=== PATIENT | female | born 1965 ===

== ENCOUNTER 2023-01-30 18:49 | Inpatient (IN) | payer OTHER, SELFPAY ==
--- NOTE | 2023-01-30 19:39 | PC.ADMIT ---
Nursing admission note: 57 year old female DX: Major Depressive Disorder with psychotic features. Referred for admission by CARE team. Per evaluation/family report patient had not been taking medications, has been increasingly depressed. Patient was brought to [facility] by her family for increased depression. Patient arrived to unit accompanied by EMT and security. Signed conditional voluntary for admission. Patient appeared to be thought blocked, hesitant with delay in responding. Patient does not make eye contact or engage verbally. Dressed in hospital attire. Did not respond to writers offer to orient her to unit or take vital signs. TOX screen negative, urine negative, COVID negative. NKDA, Lactose intolerant. Placed on 15 minute checks for safety. See crisis evaluation for details.
[2023-01-31] MEDS: Acetaminophen 325 MG TABLET 650 MG PO (01:14)
--- NOTE | 2023-01-31 01:38 | PC.ADMIT ---
Yoselin is a 57 year old female admitted from [facility] on a CV. She is flat guarded and suspicious. She would not engage with any staff for several hours after arriving to the floor. she declined to sign consent for her son aurea who is reportedly her Health Care Proxy. she has poor eye contact and became agitated and rude with admission questions. she reported multiple time that she doesn't belong her and that that there was supposed to be a crisis meeting with my family at the other hospital and then I was supposed to go home. I did not consent to be here. Are you telling me that I can't go home tonight? why can't I go home I didn't consent to be here in the first place She appears thought blocked and internally preoccupied but denies all psychiatric symptoms . she stated that she has trauma and has been treated for PTSD but would not reveal any details. patient oriented to unit. Plan of Care initiated
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
--- NOTE | 2023-01-31 06:58 | PC.NURSE ---
son-requested son, Shar, to be called and told he could visit. message left.
[2023-01-31 10:10] LABS: Estimated Average Glucose 108 mg/dL; Hemoglobin A1c % 5.4 %
--- NOTE | 2023-01-31 10:43 | PC.NURSE ---
Pt refused vitals and AM medication but accepted blood work. Pt stood in the same spot in the kitchen area for 3 hours and did not eat breakfast.
[2023-01-31 12:11] LABS: Alanine Aminotransferase 16 U/L (0-31); Albumin Level 5.1 g/dL (3.5-5.0); Alkaline Phosphatase 73 U/L (39-117); Anion Gap 17 (12-20); Aspartate Amino Transferase 22 U/L (5-31); Bilirubin Total 0.7 mg/dL (0.0-1.0); Blood Urea Nitrogen 20 mg/dL (9-16); Calcium 10.9 mg/dL (8.4-10.2); Carbon Dioxide 27 mmol/L (22-29); Chloride 101 mmol/L (96-108); Cholesterol 215 mg/dL; Estimated Glomerular Filt Rate > 60; Glucose Fasting 128 mg/dL (60-99); HDL Cholesterol 50 mg/dL; LDL Cholesterol Calculated 148 mg/dl; Potassium 4.2 mmol/L (3.3-5.1); Sodium 141 mmol/L (135-145); Total Protein 8.7 g/dL (6.5-8.0); Triglycerides 89 mg/dL
[2023-01-31 12:39] LABS: Vitamin B12 > 2000 pg/mL (200-900)
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
[2023-01-31 20:20] VITALS: BP 147/90; PULSE 106; RESP 16; TEMP 36.6; O2SAT 96
[2023-02-01] MEDS: Acetaminophen 325 MG TABLET 650 MG PO ×3 (00:01→15:05)
--- NOTE | 2023-02-01 04:21 | PC.NURSE ---
Addendum entered by Rosanne Finn RN 02/01/23 06:48: Has anyone called for me, I heard a helicopter , when asked what a helicopter has to do with someone calling for her her gaze and stance intensified as she stepped toward this database report writer and said my family owns a helicopter asked for Tylenol (had requested it crushed earlier because of the hour I can't swallow this ) asked if she needed it crushed and she did not answer then became argumentative when it wasn't crushed. refused Tylenol Addendum entered by Rosanne Finn RN 02/01/23 05:41: patient is noted to have been refusing meals but eating sealed snacks. This database report writer asked if the patient thought it might be easier for her to accept the meals if they canme from the kitchen sealed and she indicated that it would be easier to eat meals that came sealed. will pass the information on to team Original Note: Yoselin was noted to be standing in the heart staring blankly at the door for several hours. she requested that her bed sheets be changed and her bed be sanitized and stated but don't do it without me I want to see it. when staff was ready to help the patient she refused to go to her room and observe the cleaning of her bed. She also refused the clean linens that were supplied for her. she stated that she wanted it cleaned again and to have new fresh linens but then refused to observe a second cleaning or to accept the new fresh linens. she had also asked for her bathroom to be cleaned but again did not go to her room to observe the cleaning. After the person from environmental services left she became argumentative stating that she had not seen him clean her bathroom therefore she couldn't be sure that it was cleaned and wanted him to return and do it again so she could watch. when she was informed that this database report writer would not call them back to clean the bathroom again she became more intense and stepped toward this database report writer she was redirected without incident. the patient refused her HS Seroquel stating that she had taken her medication at the other hospital and that she shouldn't be here and needs to be transferred back to [facility]. Patient was offered her medications several times and each time she continued to perseverate about needing to see her bathroom being cleaned. patient refuses to have her bed made she will only sit for brief periods in a chair that has been sanitized. she has not slept thus far this shift but has stated several times that she doesn't need the offered item because she will be being discharged in t morning. she ate 1 bag of chips and 1 container of Apple sauce since 1930 on 01/31 and was not observed drinking anything despite being offered multiple things.
[2023-02-01] MEDS: Venlafaxine HCl ER 75 MG CAP.ER.24H PO (08:43)
[2023-02-01 08:56] VITALS: BP 132/82; PULSE 94; RESP 16; TEMP 36.2; O2SAT 98
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
[2023-02-02 08:15] VITALS: BP 156/89; PULSE 99; RESP 16; TEMP 36.1; O2SAT 99
[2023-02-02] MEDS: Venlafaxine HCl ER 75 MG CAP.ER.24H PO (10:22)
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
[2023-02-02 21:50] VITALS: BP 145/100; PULSE 70; RESP 16; TEMP 36.6; O2SAT 95
[2023-02-03] MEDS: Venlafaxine HCl ER 75 MG CAP.ER.24H PO (09:49)
--- NOTE | 2023-02-03 16:48 | PC.NURSE ---
Judy Alfonso APRN authorized early administration of Seroquel.
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
[2023-02-03 20:25] VITALS: BP 147/90; PULSE 80; RESP 18; TEMP 36.6
[2023-02-04 13:32] VITALS: BP 125/77; PULSE 104; RESP 18; TEMP 36.6; O2SAT 97
--- NOTE | 2023-02-04 14:38 | P.PNPSI_ITS ---
Subjective Subjective Date of Service: 02/04/23 Reason For Visit: F33.3 Subjective Notes: Section 12B Interim History: Pt in bed. Minimally talking to this telegraphic typewriter operator chief. She reports I'm not supposed to be here. Pt reports she hopes to be discharged home soon. Her breakfast and lunch are both untouched. Per nursing, pt has had minimal oral intake. Note that admission labs show elevated BUN, elevated protein all most likely due to dehydration. This telegraphic typewriter operator chief explained rechecking labs to check renal function as her intake continues to be very poor since admission, but pt declined. Pt has declined taking seroquel. She has taken effexor but pt highly paranoid, probably antidepressant may be worsening psychosis without her taking antipsychotic. Review of Systems Review of Systems Chronic back and knee pain Nasal congestion Otherwise patient has no acute medical complaints Yes all other systems are reviewed and are negative Mental Status Exam Mental Status Exam Narrative: pt disheveled; disorganized; talking to herself with speech increase in rate, amount. When appraoched by staff gives very brief answers; thoughts logical but based on delusional material. affect constricted, normo-intense, min-labile. mood not assessed. no SI/HI/AVH expressed. judgment and insight poor Diagnostics Vital Signs (24Hr): Vital Signs - 24 hr 02/03/23 20:25 02/04/23 13:32 Temperature 97.9 F 97.9 F Pulse Rate 80 104 H Respiratory Rate 18 18 Blood Pressure 147/90 H 125/77 Pulse Oximetry 97 Oxygen Delivery Method Room Air Room Air Labs 01/31/23 09:11 Medications Medications Current Medications Acetaminophen (Acetaminophen 325 Mg Tablet) 650 mg PO Q6H PRN PRN Reason: Headache/Pain Mild Scale (1-3) Last Admin: 02/01/23 15:05 Dose: 650 mg Al Hydroxide/Mg Hydroxide (Magnesium Hydrox/Alum Hydrox 30 Ml Oral.Susp) 30 ml PO Q6H PRN PRN Reason: Heartburn/Nausea Fluticasone Propionate (Fluticasone Propionate Nasal 16 Gm [place]) 1 spray NOSTRIL-B BID PRN PRN Reason: Nasal Congestion Hydroxyzine HCl (Hydroxyzine Hcl 25 Mg Tablet) 25 mg PO Q6H PRN PRN Reason: Anxiety Magnesium Hydroxide (Milk Of Magnesia 30 Ml Oral.Susp) 30 ml PO DAILY PRN PRN Reason: Constipation Nicotine Polacrilex (Nicotine Polacrilex 2 Mg Gum) 4 mg BUCCAL Q2H PRN PRN Reason: Nicotine Cravings Quetiapine Fumarate (Quetiapine Fumarate 25 Mg Tablet) 25 mg PO BEDTIME MASSIMO Last Admin: 02/04/23 04:21 Dose: Not Given Quetiapine Fumarate (Quetiapine Fumarate 100 Mg Tablet) 100 mg PO BEDTIME MASSIMO Last Admin: 02/04/23 04:21 Dose: Not Given Trazodone HCl (Trazodone Hcl 50 Mg Tablet) 50 mg PO BEDTIME MRX1 PRN PRN Reason: Insomnia Venlafaxine HCl (Venlafaxine Hcl Er 75 Mg Cap.Er.24h) 75 mg PO DAILY [facility] Last Admin: 02/04/23 12:31 Dose: Not Given Allergies Allergies Allergy/AdvReac Type Severity Reaction Status Date / Time Unable to Assess Allergy Unverified 01/30/23 19:13 Assessment & Plan Assessment & Plan (1) Schizophrenia, paranoid, chronic with acute exacerbation: Status: Acute Code(s): F20.0 - Paranoid schizophrenia Plan 01/31: continue/restart outpt regimen of effexor and seroquel. collect collateral as able. encourage adequate PO intake and ADLs. 02/01: refused seroquel last night, took effexor this morning. encouraged to take seroquel as well. informed we would be filing for commitment. tamez warning given. 02/02 encourage seroquel; continue treatment plan 02/03 continue treatment plan 02/04 continue current tx. minimal oral intake. labs already showing s/s of de hydrating, pt declines further labs to check impact on renal function. refuses medicaiton, mostly seroquel or other antipsychotic. Reason for continued inpatient stay Substantial Risk for: inability to function Time Spent With Patient Time: Total time managing care of this patient today ____ minutes.
[2023-02-04 16:53] LABS: Alanine Aminotransferase 22 U/L (0-31); Albumin Level 4.6 g/dL (3.5-5.0); Alkaline Phosphatase 63 U/L (39-117); Anion Gap 18 (12-20); Aspartate Amino Transferase 25 U/L (5-31); Bilirubin Total 0.7 mg/dL (0.0-1.0); Blood Urea Nitrogen 22 mg/dL (9-16); Calcium 10.3 mg/dL (8.4-10.2); Carbon Dioxide 25 mmol/L (22-29); Chloride 106 mmol/L (96-108); Estimated Glomerular Filt Rate > 60; Glucose Random 92 mg/dL (60-115); Potassium 4.7 mmol/L (3.3-5.1); Sodium 144 mmol/L (135-145); Total Protein 7.7 g/dL (6.5-8.0)
[2023-02-04 20:25] VITALS: RESP 18
[2023-02-04] MEDS: QUEtiapine Fumarate 100 MG TABLET PO (22:38)
[2023-02-04] MEDS: QUEtiapine Fumarate 25 MG TABLET PO (22:38)
--- NOTE | 2023-02-05 02:15 | PC.NURSE ---
Yoselin remains flat, guarded, paranoid and suspicious. she is slow to respond and refused vital signs, she took HS Seroquel with great encouragement from staff. she appears internally preoccupied but denies all psychiatric symptoms. when this documentation writer was attempting contact time with the patient she stated I don't understand the words you are saying, I don't want to talk to you about this, I'm not trying to be rude but I don't know what your talking about and I don't want to talk t you about this. continue to monitor for safety, continue Plan of Care
[2023-02-05 06:00] VITALS: BP 113/58; PULSE 92; RESP 18; TEMP 36.6; O2SAT 96
[2023-02-05] MEDS: Venlafaxine HCl ER 75 MG CAP.ER.24H PO (10:22)
[2023-02-05 21:35] VITALS: BP 118/77; PULSE 82; RESP 16; TEMP 36.2; O2SAT 97
--- NOTE | 2023-02-05 22:42 | P.PNPSI_ITS ---
Subjective Subjective Date of Service: 02/05/23 Reason For Visit: F33.3 Interim History: pt remains rigid in her thinking, saying she isn't supposed to be here, saying she was taking care of herself and others at home prior to hospitalization. seemed to have the expectation that she would be discharging today. legal situation reviewed, pt encouraged to take medications and discuss her situation with her family. it was noted pt took seroquel last night for the first time since admission. per staff, refused effexor. ignoring staff. extremely poor PO intake. refusing meds generally speaking. poor sleep. refusing labs to check on her nutrition/hydration status. isolative. appeared to have slept 7 hours last night. Mental Status Exam Mental Status Exam Narrative: dressed in [facility]. PMR. mod cooperative. speech nml in rate, amount, loudness. thoughts logical but based on delusional material. affect constricted, normo-intense, min-labile. mood not assessed. no SI/HI/AVH expressed. Diagnostics Vital Signs (24Hr): Vital Signs - 24 hr 02/05/23 06:00 02/05/23 21:35 Temperature 97.8 F 97.2 F Pulse Rate 92 82 Respiratory Rate 18 16 Blood Pressure 113/58 L 118/77 Pulse Oximetry 96 97 Oxygen Delivery Method Room Air Room Air Labs 02/04/23 15:31 Labs: Laboratory Results - last 48 hr 02/04/23 15:31 Sodium 144 Potassium 4.7 Chloride 106 Carbon Dioxide 25 Anion Gap 18 BUN 22 H Creatinine 0.85 Estim Creat Clear Calc TNP Estimated GFR > 60 Random Glucose 92 Calcium 10.3 H Total Bilirubin 0.7 AST 25 ALT 22 Alkaline Phosphatase 63 Total Protein 7.7 Albumin 4.6 Medications Medications Current Medications Acetaminophen (Acetaminophen 325 Mg Tablet) 650 mg PO Q6H PRN PRN Reason: Headache/Pain Mild Scale (1-3) Last Admin: 02/01/23 15:05 Dose: 650 mg Al Hydroxide/Mg Hydroxide (Magnesium Hydrox/Alum Hydrox 30 Ml Oral.Susp) 30 ml PO Q6H PRN PRN Reason: Heartburn/Nausea Fluticasone Propionate (Fluticasone Propionate Nasal 16 Gm [place]) 1 spray NOST RIL-B BID PRN PRN Reason: Nasal Congestion Hydroxyzine HCl (Hydroxyzine Hcl 25 Mg Tablet) 25 mg PO Q6H PRN PRN Reason: Anxiety Magnesium Hydroxide (Milk Of Magnesia 30 Ml Oral.Susp) 30 ml PO DAILY PRN PRN Reason: Constipation Nicotine Polacrilex (Nicotine Polacrilex 2 Mg Gum) 4 mg BUCCAL Q2H PRN PRN Reason: Nicotine Cravings Quetiapine Fumarate (Quetiapine Fumarate 25 Mg Tablet) 25 mg PO BEDTIME MASSIMO Last Admin: 02/05/23 22:34 Dose: Not Given Quetiapine Fumarate (Quetiapine Fumarate 100 Mg Tablet) 100 mg PO BEDTIME MASSIMO Last Admin: 02/05/23 22:34 Dose: Not Given Trazodone HCl (Trazodone Hcl 50 Mg Tablet) 50 mg PO BEDTIME MRX1 PRN PRN Reason: Insomnia Venlafaxine HCl (Venlafaxine Hcl Er 75 Mg Cap.Er.24h) 75 mg PO DAILY [facility] Last Admin: 02/05/23 10:22 Dose: 75 mg Allergies Allergies Allergy/AdvReac Type Severity Reaction Status Date / Time Unable to Assess Allergy Unverified 01/30/23 19:13 Assessment & Plan Assessment & Plan (1) Schizophrenia, paranoid, chronic with acute exacerbation: Status: Acute Code(s): F20.0 - Paranoid schizophrenia Plan 01/31: continue/restart outpt regimen of effexor and seroquel. collect collateral as able. encourage adequate PO intake and ADLs. 02/01: refused seroquel last night, took effexor this morning. encouraged to take seroquel as well. informed we would be filing for commitment. joi valdez given. 02/02 encourage seroquel; continue treatment plan 02/03 continue treatment plan 02/04 continue current tx. minimal oral intake. labs already showing s/s of dehydrating, pt declines further labs to check impact on renal function. refuses medication, mostly seroquel or other antipsychotic. 02/05: took seroquel last night for the first time since admission. presentation unchanged. delusional regarding her level of function and behaviors (such as adequacy of PO intake). Reason for continued inpatient stay Substantial Risk for: inability to function and rapid decompensation Time Spent With Patient Time: Total time managing care of this patient today _25___ minutes.
[2023-02-06] MEDS: Venlafaxine HCl ER 75 MG CAP.ER.24H PO (09:18)
[2023-02-06 10:00] VITALS: BP 122/80; PULSE 84; RESP 16; TEMP 36.4; O2SAT 98
--- NOTE | 2023-02-06 15:42 | P.PNPSI_ITS ---
Subjective Subjective Date of Service: 02/06/23 Reason For Visit: F33.3 Interim History: same presentation, unable to engage in conversation beyond i'm not supposed to be here. re-educated re legal circumstance, reinforced exhortation to take seroquel. behaving as if we had not had these conversations yesterday. per staff, did not eat breakfast or dinner. refused 1:1 contact. incontinent of bowel and urine, confused about what she needs to do to clean up. required RN assistance to shower. refused HS meds. Mental Status Exam Mental Status Exam Narrative: dressed in [facility]. PMR. mod cooperative. speech nml in rate, amount, loudness. thoughts logical but based on delusional material. affect constricted, normo-intense, min-labile. mood not assessed. no SI/HI/AVH expressed. Diagnostics Vital Signs (24Hr): Vital Signs - 24 hr 02/05/23 21:35 02/06/23 10:00 Temperature 97.2 F 97.6 F Pulse Rate 82 84 Respiratory Rate 16 16 Blood Pressure 118/77 122/80 Pulse Oximetry 97 98 Oxygen Delivery Method Room Air Room Air Labs 02/04/23 15:31 Labs: Laboratory Results - last 48 hr 02/04/23 15:31 Sodium 144 Potassium 4.7 Chloride 106 Carbon Dioxide 25 Anion Gap 18 BUN 22 H Creatinine 0.85 Estim Creat Clear Calc TNP Estimated GFR > 60 Random Glucose 92 Calcium 10.3 H Total Bilirubin 0.7 AST 25 ALT 22 Alkaline Phosphatase 63 Total Protein 7.7 Albumin 4.6 Medications Medications Current Medications Acetaminophen (Acetaminophen 325 Mg Tablet) 650 mg PO Q6H PRN PRN Reason: Headache/Pain Mild Scale (1-3) Last Admin: 02/01/23 15:05 Dose: 650 mg Al Hydroxide/Mg Hydroxide (Magnesium Hydrox/Alum Hydrox 30 Ml Oral.Susp) 30 ml PO Q6H PRN PRN Reason: Heartburn/Nausea Fluticasone Propionate (Fluticasone Propionate Nasal 16 Gm [place]) 1 spray NOSTRIL-B BID PRN PRN Reason: Nasal Congestion Hydroxyzine HCl (Hydroxyzine Hcl 25 Mg Tablet) 25 mg PO Q6H PRN PRN Reason: Anxiety Magnesium Hydroxide (Milk Of Magnesia 30 Ml Oral.Susp) 30 ml PO DAILY PRN PRN Reason: Constipation Nicotine Polacrilex (Nicotine Polacrilex 2 Mg Gum) 4 mg BUCCAL Q2H PRN PRN Reason: Nicotine Cravings Quetiapine Fumarate (Quetiapine Fumarate 25 Mg Tablet) 25 mg PO BEDTIME [facility] Last Admin: 02/05/23 22:34 Dose: Not Given Quetiapine Fumarate (Quetiapine Fumarate 100 Mg Tablet) 100 mg PO BEDTIME [facility]IMO Last Admin: 02/05/23 22:34 Dose: Not Given Trazodone HCl (Trazodone Hcl 50 Mg Tablet) 50 mg PO BEDTIME MRX1 PRN PRN Reason: Insomnia Venlafaxine HCl (Venlafaxine Hcl Er 75 Mg Cap.Er.24h) 75 mg PO DAILY [facility] Last Admin: 02/06/23 09:18 Dose: 75 mg Allergies Allergies Allergy/AdvReac Type Severity Reaction Status Date / Time Unable to Assess Allergy Unverified 01/30/23 19:13 Assessment & Plan Assessment & Plan (1) Schizophrenia, paranoid, chronic with acute exacerbation: Status: Acute Code(s): F20.0 - Paranoid schizophrenia Plan 01/31: continue/restart outpt regimen of effexor and seroquel. collect collateral as able. encourage adequate PO intake and ADLs. 02/01: refused seroquel last night, took effexor this morning. encouraged to take seroquel as well. informed we would be filing for commitment. tamez warning given. 02/02 encourage seroquel; continue treatment plan 02/03 continue treatment plan 02/04 continue current tx. minimal oral intake. labs already showing s/s of dehydrating, pt declines further labs to check impact on renal function. refuses medication, mostly seroquel or other antipsychotic. 02/05: took seroquel last night for the first time since admission. presentation unchanged. delusional regarding her level of function and behaviors (such as adequacy of PO intake). 02/06: no change in presentation. refused seroquel last night. Reason for continued inpatient stay Substantial Risk for: inability to function Time Spent With Patient Time: Total time managing care of this patient today _25___ minutes.
--- NOTE | 2023-02-06 17:15 | PC.NURSE ---
Verbal permission from patient to speak with son. Update given regarding her care.
[2023-02-06 19:55] VITALS: BP 122/81; PULSE 81; RESP 16; TEMP 36.6; O2SAT 95
[2023-02-06] MEDS: QUEtiapine Fumarate 100 MG TABLET PO (21:09)
[2023-02-06] MEDS: QUEtiapine Fumarate 25 MG TABLET PO (21:09)
--- NOTE | 2023-02-06 21:53 | PC.NURSE ---
Yoselin is admitted to [facility] on a section 7 for safety, medication management and stabilization, diagnosis MDD with psychotic features. This evening she has been observed to standing in the heart, on approach she was compliant to sit in the day room for VS/assessment, Denies SI/AVH, reported not feeling safe on the unit R/T another resident, verbalized concern about eating food provided, medications, drinking fluids, or sleeping in her assigned room, not sure it's safe. I don't know the person in my room. I was alone before. medication education given, took meds without problems, compliant with mouth check, fluids encouraged, given bottle(s) of water, offered another area to rest/sleep if needed. Yoselin verbalized that she is willing to eat if food is not opened, I'll eat the apple sauce cup. Reassurance/support provided, no incontinence episodes reported or observed. POC as outlined, 15 min unit safety observation.
[2023-02-07] MEDS: Venlafaxine HCl ER 75 MG CAP.ER.24H PO (08:35)
--- NOTE | 2023-02-07 13:48 | HO.PSYCHPN ---
Subjective Subjective Date of Service: 02/07/23 Reason For Visit: F33.3 Interim History: calm, cooperative. PMR, often seen standing in the middle of the heart for prolonged periods of time. continues to have poor insight into the reasons for her hospitalization, states she doesn't feel safe with the food. states she is concerned about [her] roommate, saying she does not feel safe with her. she observes she has had a couple of roommates already here and felt fine about them. per staff, paranoid, suspicious, guarded. fearful of sleeping with roommate. slept in sensory room. at 1/2 breakfast, drinking bottled water. Mental Status Exam Mental Status Exam Narrative: dressed in [facility]. PMR. mod cooperative. speech decr in rate, amount, loudness. thoughts logical but based on delusional material. affect constricted, normo-intense, non-labile. mood not assessed. no SI/HI/AVH expressed. Diagnostics Vital Signs (24Hr): Vital Signs - 24 hr 02/06/23 19:55 Temperature 97.8 F Pulse Rate 81 Respiratory Rate 16 Blood Pressure 122/81 Pulse Oximetry 95 Oxygen Delivery Method Room Air Labs 02/04/23 15:31 Medications Medications Current Medications Acetaminophen (Acetaminophen 325 Mg Tablet) 650 mg PO Q6H PRN PRN Reason: Headache/Pain Mild Scale (1-3) Last Admin: 02/01/23 15:05 Dose: 650 mg Al Hydroxide/Mg Hydroxide (Magnesium Hydrox/Alum Hydrox 30 Ml Oral.Susp) 30 ml PO Q6H PRN PRN Reason: Heartburn/Nausea Fluticasone Propionate (Fluticasone Propionate Nasal 16 Gm [place]) 1 spray NOSTRIL-B BID PRN PRN Reason: Nasal Congestion Hydroxyzine HCl (Hydroxyzine Hcl 25 Mg Tablet) 25 mg PO Q6H PRN PRN Reason: Anxiety Magnesium Hydroxide (Milk Of Magnesia 30 Ml Oral.Susp) 30 ml PO DAILY PRN PRN Reason: Constipation Nicotine Polacrilex (Nicotine Polacrilex 2 Mg Gum) 4 mg BUCCAL Q2H PRN PRN Reason: Nicotine Cravings Quetiapine Fumarate (Quetiapine Fumarate 25 Mg Tablet) 25 mg PO BEDTIME [facility] Last Admin: 02/06/23 21:09 Dose: 25 mg Quetiapine Fumarate (Quetiapine Fumarate 100 Mg Tablet) 100 mg PO BEDTIME [facility] Last Admin: 02/06/23 21:09 Dose: 100 mg Trazodone HCl (Trazodone Hcl 50 Mg Tablet) 50 mg PO BEDTIME [id number] PRN PRN Reason: Insomnia Venlafaxine HCl (Venlafaxine Hcl Er 75 Mg Cap.Er.24h) 75 mg PO DAILY [facility] Last Admin: 02/07/23 08:35 Dose: 75 mg Allergies Allergies Allergy/AdvReac Type Severity Reaction Status Date / Time Unable to Assess Allergy Unverified 01/30/23 19:13 Assessment & Plan Assessment & Plan (1) Schizophrenia, paranoid, chronic with acute exacerbation: Status: Acute Code(s): F20.0 - Paranoid schizophrenia Plan 01/31: continue/restart outpt regimen of effexor and seroquel. collect collateral as able. encourage adequate PO intake and ADLs. 02/01: refused seroquel last night, took effexor this morning. encouraged to take seroquel as well. informed we would be filing for commitment. tamez warning given. 02/02 encourage seroquel; continue treatment plan 02/03 continue treatment plan 02/04 continue current tx. minimal oral intake. labs already showing s/s of dehydrating, pt declines further labs to check impact on renal function. refuses medication, mostly seroquel or other antipsychotic. 02/05: took seroquel last night for the first time since admission. presentation unchanged. delusional regarding her level of function and behaviors (such as adequacy of PO intake). 02/06: no change in presentation. refused seroquel last night. 02/07: unchanged presentation. did take seroquel last NOC. Reason for continued inpatient stay Substantial Risk for: harm to self, inability to function and rapid decompensation Time Spent With Patient Time: Total time managing care of this patient today __25__ minutes.
[2023-02-07] MEDS: QUEtiapine Fumarate 100 MG TABLET PO (21:57)
[2023-02-07] MEDS: QUEtiapine Fumarate 25 MG TABLET PO (21:57)
[2023-02-08] MEDS: Venlafaxine HCl ER 75 MG CAP.ER.24H PO (08:15)
--- NOTE | 2023-02-08 10:43 | PC.NURSE ---
Pt ate 1oz of dry raisin bran cereal for her breakfast.
--- NOTE | 2023-02-08 13:11 | PC.NURSE ---
Pt ate a bowl of chicken noodle soup, a bag of chips, and a half bottle of [employer] spring water. Pt appeared paranoid and did not want to finish the remainder of water. RN provided her with another water bottle and encouraged fluids.
--- NOTE | 2023-02-08 15:03 | P.PNPSI_ITS ---
Subjective Subjective Date of Service: 02/08/23 Reason For Visit: F33.3 Interim History: no change in presentation. displaying disbelief that she remains in the hospital. she does say she is a little better today. she observes she has fear of being here and the food. she has a difficult time explaining what concerns her about either. she states she is being given food she did not order. she states she is concerned people are going in her room while she is not there, saying of the situation, i don't feel safe. reports having slept well last night. per staff, took meds last night. doesn't believe she's supposed to be here. needed prompts to find new room. 9/10 depression and anxiety. not feeling safe here. appeared to sleep. at 4-5 apple sauces and some tomato soup for dinner. PO intake continues to be minimal. Mental Status Exam Mental Status Exam Narrative: dressed in [facility]. PMR. mod cooperative. speech decr in rate, amount, loudness. thoughts logical but based on delusional material. affect constricted, normo-intense, non-labile. mood not assessed. no SI/HI/AVH expressed. Diagnostics Labs 02/04/23 15:31 Medications Medications Current Medications Acetaminophen (Acetaminophen 325 Mg Tablet) 650 mg PO Q6H PRN PRN Reason: Headache/Pain Mild Scale (1-3) Last Admin: 02/01/23 15:05 Dose: 650 mg Al Hydroxide/Mg Hydroxide (Magnesium Hydrox/Alum Hydrox 30 Ml Oral.Susp) 30 ml PO Q6H PRN PRN Reason: Heartburn/Nausea Fluticasone Propionate (Fluticasone Propionate Nasal 16 Gm [place]) 1 spray NOSTRIL-B BID PRN PRN Reason: Nasal Congestion Hydroxyzine HCl (Hydroxyzine Hcl 25 Mg Tablet) 25 mg PO Q6H PRN PRN Reason: Anxiety Magnesium Hydroxide (Milk Of Magnesia 30 Ml Oral.Susp) 30 ml PO DAILY PRN PRN Reason: Constipation Nicotine Polacrilex (Nicotine Polacrilex 2 Mg Gum) 4 mg BUCCAL Q2H PRN PRN Reason: Nicotine Cravings Quetiapine Fumarate (Quetiapine Fumarate 25 Mg Tablet) 25 mg PO BEDTIME [facility] Last Admin: 02/07/23 21:57 Dose: 25 mg Quetiapine Fumarate (Quetiapine Fumarate 100 Mg Tablet) 100 mg PO BEDTIME [facility] Last Admin: 02/07/23 21:57 Dose: 100 mg Trazodone HCl (Trazodone Hcl 50 Mg Tablet) 50 mg PO BEDTIME [id number] PRN PRN Reason: Insomnia Venlafaxine HCl (Venlafaxine Hcl Er 75 Mg Cap.Er.24h) 75 mg PO DAILY [facility] Last Admin: 02/08/23 08:15 Dose: 75 mg Allergies Allergies Allergy/AdvReac Type Severity Reaction Status Date / Time Unable to Assess Allergy Unverified 01/30/23 19:13 Assessment & Plan Assessment & Plan (1) Schizophrenia, paranoid, chronic with acute exacerbation: Status: Acute Code(s): F20.0 - Paranoid schizophrenia Plan 01/31: continue/restart outpt regimen of effexor and seroquel. collect collateral as able. encourage adequate PO intake and ADLs. 02/01: refused seroquel last night, took effexor this morning. encouraged to take seroquel as well. informed we would be filing for commitment. tamez warning given. 02/02 encourage seroquel; continue treatment plan 02/03 continue treatment plan 02/04 continue current tx. minimal oral intake. labs already showing s/s of dehydrating, pt declines further labs to check impact on renal function. refuses medication, mostly seroquel or other antipsychotic. 02/05: took seroquel last night for the first time since admission. presentation unchanged. delusional regarding her level of function and behaviors (such as adequacy of PO intake). 02/06: no change in presentation. refused seroquel last night. 02/07: unchanged presentation. did take seroquel last NOC. 02/08: unchanged presentation. took seroquel last night. says she is feeling a little better today. paranoid food is poisoned and that people are entering her room while she is not there. Reason for continued inpatient stay Substantial Risk for: inability to function and rapid decompensation Time Spent With Patient Time: Total time managing care of this patient today __25__ minutes.
--- NOTE | 2023-02-08 17:34 | PC.NURSE ---
Pt ate 1 apple sauce as a snack
--- NOTE | 2023-02-08 18:11 | PC.NURSE ---
Pt ate broccoli, tomato soup, and apple sauce for dinner
[2023-02-08 20:23] VITALS: BP 108/75; PULSE 77; RESP 18; TEMP 36.6; O2SAT 98
[2023-02-08] MEDS: QUEtiapine Fumarate 100 MG TABLET PO (20:26)
[2023-02-08] MEDS: QUEtiapine Fumarate 25 MG TABLET PO (20:26)
[2023-02-09 09:02] VITALS: BP 115/61; PULSE 101; RESP 16
[2023-02-09] MEDS: Venlafaxine HCl ER 75 MG CAP.ER.24H PO (09:03)
--- NOTE | 2023-02-09 11:59 | PC.NURSE ---
For breakfast pt ate about 10% of her meal - 1/2 of an omelette, about 2 bites of [place] toast, and drank about 1/2 of her tea. Pt's son visited, and reported that she likes white grape juice, and will bring a bottle in for her tomorrow.
--- NOTE | 2023-02-09 13:47 | HO.PSYCHPN ---
Subjective Subjective Date of Service: 02/09/23 Reason For Visit: F33.3 Interim History: no change in presentation. Patient is paranoid and anxious. She is eating small amounts of food due to paranoia about the amount of food that I didn't order. Also feels people are entering her room. Brother told nursing she likes grape juice and he will bring some. Reports having slept well last night. per staff, took meds last night. Says she slept better. PO intake continues to be minimal.Appears preoccupied. Review of Systems Review of Systems Chronic back and knee pain Nasal congestion Otherwise patient has no acute medical complaints Yes all other systems are reviewed and are negative Mental Status Exam Mental Status Exam Narrative: dressed in [facility]. PMR. mod cooperative. speech decr in rate, amount, loudness. thoughts logical but based on delusional material. affect constricted, normo-intense, non-labile. mood not assessed. no SI/HI/AVH expressed. Appears preoccupied and thought process slowed. Soft speech. Diagnostics Vital Signs (24Hr): Vital Signs - 24 hr 02/08/23 20:23 02/09/23 09:02 Temperature 97.8 F Pulse Rate 77 101 H Respiratory Rate 18 16 Blood Pressure 108/75 115/61 Pulse Oximetry 98 Oxygen Delivery Method Room Air Labs 02/04/23 15:31 Medications Medications Current Medications Acetaminophen (Acetaminophen 325 Mg Tablet) 650 mg PO Q6H PRN PRN Reason: Headache/Pain Mild Scale (1-3) Last Admin: 02/01/23 15:05 Dose: 650 mg Al Hydroxide/Mg Hydroxide (Magnesium Hydrox/Alum Hydrox 30 Ml Oral.Susp) 30 ml PO Q6H PRN PRN Reason: Heartburn/Nausea Fluticasone Propionate (Fluticasone Propionate Nasal 16 Gm [place]) 1 spray NOSTRIL-B BID PRN PRN Reason: Nasal Congestion Hydroxyzine HCl (Hydroxyzine Hcl 25 Mg Tablet) 25 mg PO Q6H PRN PRN Reason: Anxiety Magnesium Hydroxide (Milk Of Magnesia 30 Ml Oral.Susp) 30 ml PO DAILY PRN PRN Reason: Constipation Nicotine Polacrilex (Nicotine Polacrilex 2 Mg Gum) 4 mg BUCCAL Q2H PRN PRN Reason: Nicotine Cravings Quetiapine Fumarate (Quetiapine Fumarate 25 Mg Tablet) 25 mg PO BEDTIME [facility] Last Admin: 02/08/23 20:26 Dose: 25 mg Quetiapine Fumarate (Quetiapine Fumarate 100 Mg Tablet) 100 mg PO BEDTIME [facility] Last Admin: 02/08/23 20:26 Dose: 100 mg Trazodone HCl (Trazodone Hcl 50 Mg Tablet) 50 mg PO BEDTIME MRX1 PRN PRN Reason: Insomnia Venlafaxine HCl (Venlafaxine Hcl Er 75 Mg Cap.Er.24h) 75 mg PO DAILY [facility] Last Admin: 02/09/23 09:03 Dose: 75 mg Allergies Allergies Allergy/AdvReac Type Severity Reaction Status Date / Time Unable to Assess Allergy Unverified 01/30/23 19:13 Assessment & Plan Assessment & Plan (1) Schizophrenia, paranoid, chronic with acute exacerbation: Status: Acute Code(s): F20.0 - Paranoid schizophrenia Plan 01/31: continue/restart outpt regimen of effexor and seroquel. collect collateral as able. encourage adequate PO intake and ADLs. 02/01: refused seroquel last night, took effexor this morning. encouraged to take seroquel as well. informed we would be filing for commitment. tamez warning given. 02/02 encourage seroquel; continue treatment plan 02/03 continue treatment plan 02/04 continue current tx. minimal oral intake. labs already showing s/s of dehydrating, pt declines further labs to check impact on renal function. refuses medication, mostly seroquel or other antipsychotic. 02/05: took seroquel last night for the first time since admission. presentation unchanged. delusional regarding her level of function and behaviors (such as adequacy of PO intake). 02/06: no change in presentation. refused seroquel last night. 02/07: unchanged presentation. did take seroquel last NOC. 02/08: unchanged presentation. took seroquel last night. says she is feeling a little better today. paranoid food is poisoned and that people are entering her room while she is not there. 02/09: Increase Seroquel to 50 mg HS targeting paranoia. Continue titration. Reason for continued inpatient stay Substantial Risk for: inability to function and rapid decompensation Time Spent With Patient Time: Total time managing care of this patient today ____ minutes.
[2023-02-09 21:12] VITALS: BP 134/81; PULSE 77; RESP 18; TEMP 36.3; O2SAT 97
--- NOTE | 2023-02-09 23:02 | PC.NURSE ---
Pt was confused by the increase in dose of seroquel from 125mg to 150mg. Refused the increase and refused the entire dose this evening stating she wants to talk to her doctor as she was not aware of an increase. Pt appeared to be distrustful of RN, even though she had been taking meds from this RN for past two days.
[2023-02-10 08:00] VITALS: BP 115/74; PULSE 79; RESP 16; TEMP 36.5; O2SAT 98
[2023-02-10] MEDS: Venlafaxine HCl ER 75 MG CAP.ER.24H PO (08:24)
--- NOTE | 2023-02-10 15:23 | P.PNPSI_ITS ---
Subjective Subjective Date of Service: 02/10/23 Reason For Visit: F33.3 Interim History: no change in presentation. Patient is paranoid and anxious. She didn't want an increase in Seroquel 150 mg. She is eating small amounts of food due to paranoia. Also feels people are entering her room. Reports having slept well last night. PO intake continues to be minimal.Appears preoccupied. Review of Systems Review of Systems Chronic back and knee pain Nasal congestion Otherwise patient has no acute medical complaints Yes all other systems are reviewed and are negative Mental Status Exam Mental Status Exam Narrative: dressed in [facility]. PMR. mod cooperative. speech decr in rate, amount, loudness. thoughts logical but based on delusional material. affect constricted, normo-intense, non-labile. mood not assessed. no SI/HI/AVH expressed. Appears preoccupied and thought process slowed. Soft speech. Diagnostics Vital Signs (24Hr): Vital Signs - 24 hr 02/09/23 21:12 02/10/23 08:00 Temperature 97.3 F 97.7 F Pulse Rate 77 79 Respiratory Rate 18 16 Blood Pressure 134/81 115/74 Pulse Oximetry 97 98 Oxygen Delivery Method Room Air Room Air Labs 02/04/23 15:31 Medications Medications Current Medications Acetaminophen (Acetaminophen 325 Mg Tablet) 650 mg PO Q6H PRN PRN Reason: Headache/Pain Mild Scale (1-3) Last Admin: 02/01/23 15:05 Dose: 650 mg Al Hydroxide/Mg Hydroxide (Magnesium Hydrox/Alum Hydrox 30 Ml Oral.Susp) 30 ml PO Q6H PRN PRN Reason: Heartburn/Nausea Fluticasone Propionate (Fluticasone Propionate Nasal 16 Gm [place]) 1 spray NOSTRIL-B BID PRN PRN Reason: Nasal Congestion Hydroxyzine HCl (Hydroxyzine Hcl 25 Mg Tablet) 25 mg PO Q6H PRN PRN Reason: Anxiety Magnesium Hydroxide (Milk Of Magnesia 30 Ml Oral.Susp) 30 ml PO DAILY PRN PRN Reason: Constipation Nicotine Polacrilex (Nicotine Polacrilex 2 Mg Gum) 4 mg BUCCAL Q2H PRN PRN Reason: Nicotine Cravings Quetiapine Fumarate (Quetiapine Fumarate 25 Mg Tablet) 125 mg PO BEDTIME [facility] Trazodone HCl (Trazodone Hcl 50 Mg Tablet) 50 mg PO BEDTIME MRX1 PRN PRN Reason: Insomnia Venlafaxine HCl (Venlafaxine Hcl Er 75 Mg Cap.Er.24h) 75 mg PO DAILY [facility] Last Admin: 02/10/23 08:24 Dose: 75 mg Allergies Allergies Allergy/AdvReac Type Severity Reaction Status Date / Time Unable to Assess Allergy Unverified 01/30/23 19:13 Assessment & Plan Assessment & Plan (1) Schizophrenia, paranoid, chronic with acute exacerbation: Status: Acute Code(s): F20.0 - Paranoid schizophrenia Plan 01/31: continue/restart outpt regimen of effexor and seroquel. collect collateral as able. encourage adequate PO intake and ADLs. 02/01: refused seroquel last night, took effexor this morning. encouraged to take seroquel as well. informed we would be filing for commitment. tamez warning given. 02/02 encourage seroquel; continue treatment plan 02/03 continue treatment plan 02/04 continue current tx. minimal oral intake. labs already showing s/s of dehydrating, pt declines further labs to check impact on renal function. refuses medication, mostly seroquel or other antipsychotic. 02/05: took seroquel last night for the first time since admission. presentation unchanged. delusional regarding her level of function and behaviors (such as adequacy of PO intake). 02/06: no change in presentation. refused seroquel last night. 02/07: unchanged presentation. did take seroquel last NOC. 02/08: unchanged presentation. took seroquel last night. says she is feeling a little better today. paranoid food is poisoned and that people are entering her room while she is not there. 02/09: Increase Seroquel to 150 mg HS targeting paranoia. Continue titration. 02/10: Lower Seroquel back to 125 mg HS. Reason for continued inpatient stay Substantial Risk for: inability to function and rapid decompensation Time Spent With Patient Time: Total time managing care of this patient today ____ minutes.
[2023-02-10] MEDS: QUEtiapine Fumarate 25 MG TABLET 125 MG PO (22:01)
[2023-02-10 22:03] VITALS: BP 116/82; PULSE 83; TEMP 36.5; O2SAT 95
[2023-02-11] MEDS: Venlafaxine HCl ER 75 MG CAP.ER.24H PO (08:31)
[2023-02-11 09:18] VITALS: BP 106/67; PULSE 116; RESP 16; TEMP 36.4; O2SAT 98
--- NOTE | 2023-02-11 15:40 | HO.PSYCHPN ---
Subjective Subjective Date of Service: 02/11/23 Reason For Visit: F33.3 Interim History: seen with SW and 3 of her family members. presentation unchanged from last week. family members supportive of pt, pt able to sign in under CV. long discussion held around best treatment setting and best process to get pt the help she needs. per staff, took effexor this morning. ate 1 apple sauce and drank 1 bottle of water yesterday. denies SI/HI. took seroquel last NOC but not the night before (dosing had been increased to 150 at HS the night before). Mental Status Exam Mental Status Exam Narrative: dressed in [facility]. PMR. mod cooperative. speech decr in rate, amount, loudness. thoughts logical but based on delusional material. affect constricted, normo-intense, non-labile. mood not assessed. no SI/HI/AVH expressed. Diagnostics Vital Signs (24Hr): Vital Signs - 24 hr 02/10/23 22:03 02/11/23 09:18 Temperature 97.7 F 97.6 F Pulse Rate 83 116 H Respiratory Rate 16 Blood Pressure 116/82 106/67 Pulse Oximetry 95 98 Oxygen Delivery Method Room Air Room Air Labs 02/04/23 15:31 Medications Medications Current Medications Acetaminophen (Acetaminophen 325 Mg Tablet) 650 mg PO Q6H PRN PRN Reason: Headache/Pain Mild Scale (1-3) Last Admin: 02/01/23 15:05 Dose: 650 mg Al Hydroxide/Mg Hydroxide (Magnesium Hydrox/Alum Hydrox 30 Ml Oral.Susp) 30 ml PO Q6H PRN PRN Reason: Heartburn/Nausea Fluticasone Propionate (Fluticasone Propionate Nasal 16 Gm [place]) 1 spray NOSTRIL-B BID PRN PRN Reason: Nasal Congestion Hydroxyzine HCl (Hydroxyzine Hcl 25 Mg Tablet) 25 mg PO Q6H PRN PRN Reason: Anxiety Magnesium Hydroxide (Milk Of Magnesia 30 Ml Oral.Susp) 30 ml PO DAILY PRN PRN Reason: Constipation Nicotine Polacrilex (Nicotine Polacrilex 2 Mg Gum) 4 mg BUCCAL Q2H PRN PRN Reason: Nicotine Cravings Quetiapine Fumarate (Quetiapine Fumarate 25 Mg Tablet) 125 mg PO BEDTIME [facility] Last Admin: 02/10/23 22:01 Dose: 125 mg Trazodone HCl (Trazodone Hcl 50 Mg Tablet) 50 mg PO BEDTIME MRX1 PRN PRN Reason: Insomnia Venlafaxine HCl (Venlafaxine Hcl Er 75 Mg Cap.Er.24h) 75 mg PO DAILY [facility] Last Admin: 02/11/23 08:31 Dose: 75 mg Allergies Allergies Allergy/AdvReac Type Severity Reaction Status Date / Time Unable to Assess Allergy Unverified 01/30/23 19:13 Assessment & Plan Assessment & Plan (1) Schizophrenia, paranoid, chronic with acute exacerbation: Status: Acute Code(s): F20.0 - Paranoid schizophrenia Plan 01/31: continue/restart outpt regimen of effexor and seroquel. collect collateral as able. encourage adequate PO intake and ADLs. 02/01: refused seroquel last night, took effexor this morning. encouraged to take seroquel as well. informed we would be filing for commitment. tamez warning given. 02/02 encourage seroquel; continue treatment plan 02/03 continue treatment plan 02/04 continue current tx. minimal oral intake. labs already showing s/s of dehydrating, pt declines further labs to check impact on renal function. refuses medication, mostly seroquel or other antipsychotic. 02/05: took seroquel last night for the first time since admission. presentation unchanged. delusional regarding her level of function and behaviors (such as adequacy of PO intake). 02/06: no change in presentation. refused seroquel last night. 02/07: unchanged presentation. did take seroquel last NOC. 02/08: unchanged presentation. took seroquel last night. says she is feeling a little better today. paranoid food is poisoned and that people are entering her room while she is not there. 02/09: Increase Seroquel to 150 mg HS targeting paranoia. Continue titration. 02/10: Lower Seroquel back to 125 mg HS. 02/11: unchanged in presentation. family mtg. pt signed in voluntarily. Reason for continued inpatient stay Substantial Risk for: inability to function and rapid decompensation Time Spent With Patient Time: Total time managing care of this patient today __45__ minutes.
[2023-02-11 20:05] VITALS: BP 112/71; PULSE 73; RESP 16; TEMP 36.6; O2SAT 98
[2023-02-11] MEDS: QUEtiapine Fumarate 25 MG TABLET 125 MG PO (21:10)
[2023-02-11] MEDS: Acetaminophen 325 MG TABLET 650 MG PO (21:11)
[2023-02-12] MEDS: Venlafaxine HCl ER 75 MG CAP.ER.24H PO (08:31)
[2023-02-12 09:04] VITALS: BP 104/65; PULSE 86; RESP 18; TEMP 37.1; O2SAT 96
--- NOTE | 2023-02-12 13:06 | HO.PSYCHPN ---
Subjective Subjective Date of Service: 02/12/23 Reason For Visit: F33.3 Interim History: calm, cooperative. no substantial change in presentation. remains more forthcoming and engageable than prior. discuss 3-day notice as an option for her. suggests increasing dose of effexor for depression, which she declines. states she slept well and is still depressed. per staff, anxious and depressed. ate 50% breakfast, no lunch. pleasant, safe. visible, isolative. slept in her own bed last night. med-compliant. Mental Status Exam Mental Status Exam Narrative: dressed in [facility]. PMR. cooperative. speech decr in rate, amount, loudness. thoughts logical but based on delusional material. affect constricted, normo-intense, non-labile. mood still depressed. no SI/HI/AVH expressed. Diagnostics Vital Signs (24Hr): Vital Signs - 24 hr 02/11/23 20:05 02/12/23 09:04 Temperature 97.8 F 98.8 F Pulse Rate 73 86 Respiratory Rate 16 18 Blood Pressure 112/71 104/65 Pulse Oximetry 98 96 Oxygen Delivery Method Room Air Room Air Labs 02/04/23 15:31 Medications Medications Current Medications Acetaminophen (Acetaminophen 325 Mg Tablet) 650 mg PO Q6H PRN PRN Reason: Headache/Pain Mild Scale (1-3) Last Admin: 02/11/23 21:11 Dose: 650 mg Al Hydroxide/Mg Hydroxide (Magnesium Hydrox/Alum Hydrox 30 Ml Oral.Susp) 30 ml PO Q6H PRN PRN Reason: Heartburn/Nausea Fluticasone Propionate (Fluticasone Propionate Nasal 16 Gm [place]) 1 spray NOSTRIL-B BID PRN PRN Reason: Nasal Congestion Hydroxyzine HCl (Hydroxyzine Hcl 25 Mg Tablet) 25 mg PO Q6H PRN PRN Reason: Anxiety Magnesium Hydroxide (Milk Of Magnesia 30 Ml Oral.Susp) 30 ml PO DAILY PRN PRN Reason: Constipation Nicotine Polacrilex (Nicotine Polacrilex 2 Mg Gum) 4 mg BUCCAL Q2H PRN PRN Reason: Nicotine Cravings Quetiapine Fumarate (Quetiapine Fumarate 25 Mg Tablet) 125 mg PO BEDTIME MASSIMO Last Admin: 02/11/23 21:10 Dose: 125 mg Trazodone HCl (Trazodone Hcl 50 Mg Tablet) 50 mg PO BEDTIME MRX1 PRN PRN Reason: Insomnia Venlafaxine HCl (Venlafaxine Hcl Er 75 Mg Cap.Er.24h) 75 mg PO DAILY MASSIMO Last Admin: 02/12/23 08:31 Dose: 75 mg Allergies Allergies Allergy/AdvReac Type Severity Reaction Status Date / Time Unable to Assess Allergy Unverified 01/30/23 19:13 Assessment & Plan Assessment & Plan (1) Schizophrenia, paranoid, chronic with acute exacerbation: Status: Acute Code(s): F20.0 - Paranoid schizophrenia Plan 01/31: continue/restart outpt regimen of effexor and seroquel. collect collateral as able. encourage adequate PO intake and ADLs. 02/01: refused seroquel last night, took effexor this morning. encouraged to take seroquel as well. informed we would be filing for commitment. tamez warning given. 02/02 encourage seroquel; continue treatment plan 02/03 continue treatment plan 02/04 continue current tx. minimal oral intake. labs already showing s/s of dehydrating, pt declines further labs to check impact on renal function. refuses medication, mostly seroquel or other antipsychotic. 02/05: took seroquel last night for the first time since admission. presentation unchanged. delusional regarding her level of function and behaviors (such as adequacy of PO intake). 02/06: no change in presentation. refused seroquel last night. 02/07: unchanged presentation. did take seroquel last NOC. 02/08: unchanged presentation. took seroquel last night. says she is feeling a little better today. paranoid food is poisoned and that people are entering her room while she is not there. 02/09: Increase Seroquel to 150 mg HS targeting paranoia. Continue titration. 02/10: Lower Seroquel back to 125 mg HS. 02/11: unchanged in presentation. family mtg. pt signed in voluntarily. 02/12: declines increase in anti-depressant dosing. med-compliant, slept well last night. perhaps a bit more engageable than early in her stay, slightly less paranoid. continue current mgmt as pt declines recommended changes. Reason for continued inpatient stay Substantial Risk for: inability to function and rapid decompensation Time Spent With Patient Time: Total time managing care of this patient today _25___ minutes.
[2023-02-12 19:50] VITALS: BP 111/71; PULSE 74; RESP 16; TEMP 36.6; O2SAT 98
[2023-02-12] MEDS: Acetaminophen 325 MG TABLET 650 MG PO (20:41)
[2023-02-12] MEDS: QUEtiapine Fumarate 25 MG TABLET 125 MG PO (20:41)
[2023-02-13 08:30] VITALS: BP 104/57; PULSE 96; RESP 18; TEMP 36.3; O2SAT 98
[2023-02-13] MEDS: Venlafaxine HCl ER 75 MG CAP.ER.24H PO (08:46)
--- NOTE | 2023-02-13 12:21 | HO.PSYCHPN ---
Subjective Subjective Date of Service: 02/13/23 Reason For Visit: F33.3 Interim History: feeling a little tired. c/o back pain. eatign better. still depressed. still paranoid ppl are entering her room when she is not there or poking their heads in. per staff, watching TV, isolative. ate 50% of breakfast and lunch. feels meds are helpful. taking meds. denies psych Sx. feeling better, sleeping better. Mental Status Exam Mental Status Exam Narrative: dressed in [facility]. PMR. cooperative. speech decr in rate, nml amount, nml loudness. thoughts logical but based on delusions; paranoia remains. affect constricted, normo-intense, non-labile. mood still depressed. no SI/HI/AVH expressed. Diagnostics Vital Signs (24Hr): Vital Signs - 24 hr 02/12/23 19:50 02/13/23 08:30 Temperature 97.8 F 97.3 F Pulse Rate 74 96 Respiratory Rate 16 18 Blood Pressure 111/71 104/57 L Pulse Oximetry 98 98 Oxygen Delivery Method Room Air Room Air Labs 02/04/23 15:31 Medications Medications Current Medications Acetaminophen (Acetaminophen 325 Mg Tablet) 650 mg PO Q6H PRN PRN Reason: Headache/Pain Mild Scale (1-3) Last Admin: 02/12/23 20:41 Dose: 650 mg Al Hydroxide/Mg Hydroxide (Magnesium Hydrox/Alum Hydrox 30 Ml Oral.Susp) 30 ml PO Q6H PRN PRN Reason: Heartburn/Nausea Fluticasone Propionate (Fluticasone Propionate Nasal 16 Gm [place]) 1 spray NOSTRIL-B BID PRN PRN Reason: Nasal Congestion Hydroxyzine HCl (Hydroxyzine Hcl 25 Mg Tablet) 25 mg PO Q6H PRN PRN Reason: Anxiety Magnesium Hydroxide (Milk Of Magnesia 30 Ml Oral.Susp) 30 ml PO DAILY PRN PRN Reason: Constipation Nicotine Polacrilex (Nicotine Polacrilex 2 Mg Gum) 4 mg BUCCAL Q2H PRN PRN Reason: Nicotine Cravings Quetiapine Fumarate (Quetiapine Fumarate 25 Mg Tablet) 125 mg PO BEDTIME MASSIMO Last Admin: 02/12/23 20:41 Dose: 125 mg Trazodone HCl (Trazodone Hcl 50 Mg Tablet) 50 mg PO BEDTIME MRX1 PRN PRN Reason: Insomnia Venlafaxine HCl (Venlafaxine Hcl Er 75 Mg Cap.Er.24h) 75 mg PO DAILY MASSIMO Last Admin: 02/13/23 08:46 Dose: 75 mg Allergies Allergies Allergy/AdvReac Type Severity Reaction Status Date / Time Unable to Assess Allergy Unverified 01/30/23 19:13 Assessment & Plan Assessment & Plan (1) Schizophrenia, paranoid, chronic with acute exacerbation: Status: Acute Code(s): F20.0 - Paranoid schizophrenia Plan 01/31: continue/restart outpt regimen of effexor and seroquel. collect collateral as able. encourage adequate PO intake and ADLs. 02/01: refused seroquel last night, took effexor this morning. encouraged to take seroquel as well. informed we would be filing for commitment. tamez warning given. 02/02 encourage seroquel; continue treatment plan 02/03 continue treatment plan 02/04 continue current tx. minimal oral intake. labs already showing s/s of dehydrating, pt declines further labs to check impact on renal function. refuses medication, mostly seroquel or other antipsychotic. 02/05: took seroquel last night for the first time since admission. presentation unchanged. delusional regarding her level of function and behaviors (such as adequacy of PO intake). 02/06: no change in presentation. refused seroquel last night. 02/07: unchanged presentation. did take seroquel last NOC. 02/08: unchanged presentation. took seroquel last night. says she is feeling a little better today. paranoid food is poisoned and that people are entering her room while she is not there. 02/09: Increase Seroquel to 150 mg HS targeting paranoia. Continue titration. 02/10: Lower Seroquel back to 125 mg HS. 02/11: unchanged in presentation. family mtg. pt signed in voluntarily. 02/12: declines increase in anti-depressant dosing. med-compliant, slept well last night. perhaps a bit more engageable than early in her stay, slightly less paranoid. continue current mgmt as pt declines recommended changes. 02/13: reporting improvement in mood and sleep. taking meds. continue current mgmt. Reason for continued inpatient stay Substantial Risk for: inability to function and rapid decompensation Time Spent With Patient Time: Total time managing care of this patient today __25__ minutes.
[2023-02-13 21:48] VITALS: BP 112/73; PULSE 70; RESP 16; TEMP 36.3; O2SAT 99
[2023-02-14 08:30] VITALS: BP 128/60; PULSE 77; RESP 18; TEMP 36.6; O2SAT 98
[2023-02-14] MEDS: Venlafaxine HCl ER 75 MG CAP.ER.24H PO (09:07)
--- NOTE | 2023-02-14 13:12 | HO.PSYCHPN ---
Subjective Subjective Date of Service: 02/14/23 Reason For Visit: F33.3 Interim History: calm, cooperative. more fluid and spontaneous than prior. c/o some slowness in the mornings. declines to increase effexor once again. per staff, anxious and depressed. saw someone go in her room when she wasn't there. thinks someone is watching her when she's sleeping (not person doing checks). med-compliant. appears to sleep well. Mental Status Exam Mental Status Exam Narrative: dressed in [facility]. less PMR. cooperative. speech nml in rate, nml amount, decr loudness. thoughts logical; paranoia remains. affect constricted, normo-intense, non-labile. mood I'm OK. no SI/HI/AVH expressed. Diagnostics Vital Signs (24Hr): Vital Signs - 24 hr 02/13/23 21:48 02/14/23 08:30 Temperature 97.3 F 97.9 F Pulse Rate 70 77 Respiratory Rate 16 18 Blood Pressure 112/73 128/60 Pulse Oximetry 99 98 Oxygen Delivery Method Room Air Room Air Labs 02/04/23 15:31 Medications Medications Current Medications Acetaminophen (Acetaminophen 325 Mg Tablet) 650 mg PO Q6H PRN PRN Reason: Headache/Pain Mild Scale (1-3) Last Admin: 02/12/23 20:41 Dose: 650 mg Al Hydroxide/Mg Hydroxide (Magnesium Hydrox/Alum Hydrox 30 Ml Oral.Susp) 30 ml PO Q6H PRN PRN Reason: Heartburn/Nausea Fluticasone Propionate (Fluticasone Propionate Nasal 16 Gm [place]) 1 spray NOSTRIL-B BID PRN PRN Reason: Nasal Congestion Hydroxyzine HCl (Hydroxyzine Hcl 25 Mg Tablet) 25 mg PO Q6H PRN PRN Reason: Anxiety Magnesium Hydroxide (Milk Of Magnesia 30 Ml Oral.Susp) 30 ml PO DAILY PRN PRN Reason: Constipation Nicotine Polacrilex (Nicotine Polacrilex 2 Mg Gum) 4 mg BUCCAL Q2H PRN PRN Reason: Nicotine Cravings Quetiapine Fumarate 100 mg/ (Quetiapine Fumarate 25 mg) 125 mg PO BEDTIME MASSIMO Last Admin: 02/13/23 21:56 Dose: 125 mg Trazodone HCl (Trazodone Hcl 50 Mg Tablet) 50 mg PO BEDTIME MRX1 PRN PRN Reason: Insomnia Venlafaxine HCl (Venlafaxine Hcl Er 75 Mg Cap.Er.24h) 75 mg PO DAILY MASSIMO Last Admin: 02/14/23 09:07 Dose: 75 mg Allergies Allergies Allergy/AdvReac Type Severity Reaction Status Date / Time No Known Allergies Allergy Verified 02/13/23 22:35 Assessment & Plan Assessment & Plan (1) Schizophrenia, paranoid, chronic with acute exacerbation: Status: Acute Code(s): F20.0 - Paranoid schizophrenia Plan 01/31: continue/restart outpt regimen of effexor and seroquel. collect collateral as able. encourage adequate PO intake and ADLs. 02/01: refused seroquel last night, took effexor this morning. encouraged to take seroquel as well. informed we would be filing for commitment. tamez warning given. 02/02 encourage seroquel; continue treatment plan 02/03 continue treatment plan 02/04 continue current tx. minimal oral intake. labs already showing s/s of dehydrating, pt declines further labs to check impact on renal function. refuses medication, mostly seroquel or other antipsychotic. 02/05: took seroquel last night for the first time since admission. presentation unchanged. delusional regarding her level of function and behaviors (such as adequacy of PO intake). 02/06: no change in presentation. refused seroquel last night. 02/07: unchanged presentation. did take seroquel last NOC. 02/08: unchanged presentation. took seroquel last night. says she is feeling a little better today. paranoid food is poisoned and that people are entering her room while she is not there. 02/09: Increase Seroquel to 150 mg HS targeting paranoia. Continue titration. 02/10: Lower Seroquel back to 125 mg HS. 02/11: unchanged in presentation. family mtg. pt signed in voluntarily. 02/12: declines increase in anti-depressant dosing. med-compliant, slept well last night. perhaps a bit more engageable than early in her stay, slightly less paranoid. continue current mgmt as pt declines recommended changes. 02/13: reporting improvement in mood and sleep. taking meds. continue current mgmt. 02/14: sleeping well, mood i'm OK. paranoia of someone watching her in her sleep and of ppl entering her room when she is not there remains. declines effexor increase again. continue current mgmt. Reason for continued inpatient stay Substantial Risk for: inability to function and rapid decompensation Time Spent With Patient Time: Total time managing care of this patient today __25__ minutes.
[2023-02-14 21:39] VITALS: BP 127/74; PULSE 72; RESP 16; TEMP 36.3; O2SAT 98
[2023-02-15] MEDS: Venlafaxine HCl ER 75 MG CAP.ER.24H PO (08:39)
[2023-02-15 08:53] VITALS: BP 119/71; PULSE 79; RESP 18; TEMP 36.2; O2SAT 98
--- NOTE | 2023-02-15 12:10 | HO.PSYCHPN ---
Subjective Subjective Date of Service: 02/15/23 Reason For Visit: F33.3 Interim History: continues to present improved from admission. states she is focussed on eating her breakfast. c/o feeling tired, no different from usual. still some concern people are entering her room when she is not there, but not concerned anyone is watching her while she is sleeping. per staff, not attending groups. visible. 02/09 anx/dep. paranoid people going in her room when she is not there. slept 11-7. ate 20% dinner. Mental Status Exam Mental Status Exam Narrative: dressed in [facility]. less PMR. cooperative. speech nml in rate, nml amount, decr loudness. thoughts logical; paranoia remains. affect constricted, normo-intense, non-labile. mood OK. no SI/HI/AVH expressed. Diagnostics Vital Signs (24Hr): Vital Signs - 24 hr 02/14/23 21:39 02/15/23 08:53 Temperature 97.3 F 97.1 F Pulse Rate 72 79 Respiratory Rate 16 18 Blood Pressure 127/74 119/71 Pulse Oximetry 98 98 Oxygen Delivery Method Room Air Room Air Labs 02/04/23 15:31 Medications Medications Current Medications Acetaminophen (Acetaminophen 325 Mg Tablet) 650 mg PO Q6H PRN PRN Reason: Headache/Pain Mild Scale (1-3) Last Admin: 02/12/23 20:41 Dose: 650 mg Al Hydroxide/Mg Hydroxide (Magnesium Hydrox/Alum Hydrox 30 Ml Oral.Susp) 30 ml PO Q6H PRN PRN Reason: Heartburn/Nausea Fluticasone Propionate (Fluticasone Propionate Nasal 16 Gm [place]) 1 spray NOSTRIL-B BID PRN PRN Reason: Nasal Congestion Hydroxyzine HCl (Hydroxyzine Hcl 25 Mg Tablet) 25 mg PO Q6H PRN PRN Reason: Anxiety Magnesium Hydroxide (Milk Of Magnesia 30 Ml Oral.Susp) 30 ml PO DAILY PRN PRN Reason: Constipation Nicotine Polacrilex (Nicotine Polacrilex 2 Mg Gum) 4 mg BUCCAL Q2H PRN PRN Reason: Nicotine Cravings Quetiapine Fumarate 100 mg/ (Quetiapine Fumarate 25 mg) 125 mg PO BEDTIME MASSIMO Last Admin: 02/14/23 21:42 Dose: 125 mg Trazodone HCl (Trazodone Hcl 50 Mg Tablet) 50 mg PO BEDTIME MRX1 PRN PRN Reason: Insomnia Venlafaxine HCl (Venlafaxine Hcl Er 75 Mg Cap.Er.24h) 75 mg PO DAILY MASSIMO Last Admin: 02/15/23 08:39 Dose: 75 mg Allergies Allergies Allergy/AdvReac Type Severity Reaction Status Date / Time No Known Allergies Allergy Verified 02/13/23 22:35 Assessment & Plan Assessment & Plan (1) Schizophrenia, paranoid, chronic with acute exacerbation: Status: Acute Code(s): F20.0 - Paranoid schizophrenia Plan 01/31: continue/restart outpt regimen of effexor and seroquel. collect collateral as able. encourage adequate PO intake and ADLs. 02/01: refused seroquel last night, took effexor this morning. encouraged to take seroquel as well. informed we would be filing for commitment. tamez warning given. 02/02 encourage seroquel; continue treatment plan 02/03 continue treatment plan 02/04 continue current tx. minimal oral intake. labs already showing s/s of dehydrating, pt declines further labs to check impact on renal function. refuses medication, mostly seroquel or other antipsychotic. 02/05: took seroquel last night for the first time since admission. presentation unchanged. delusional regarding her level of function and behaviors (such as adequacy of PO intake). 02/06: no change in presentation. refused seroquel last night. 02/07: unchanged presentation. did take seroquel last NOC. 02/08: unchanged presentation. took seroquel last night. says she is feeling a little better today. paranoid food is poisoned and that people are entering her room while she is not there. 02/09: Increase Seroquel to 150 mg HS targeting paranoia. Continue titration. 02/10: Lower Seroquel back to 125 mg HS. 02/11: unchanged in presentation. family mtg. pt signed in voluntarily. 02/12: declines increase in anti-depressant dosing. med-compliant, slept well last night. perhaps a bit more engageable than early in her stay, slightly less paranoid. continue current mgmt as pt declines recommended changes. 02/13: reporting improvement in mood and sleep. taking meds. continue current mgmt. 02/14: sleeping well, mood i'm OK. paranoia of someone watching her in her sleep and of ppl entering her room when she is not there remains. declines effexor increase again. continue current mgmt. 02/15: stable presentation. no longer concerned someone is watching her while she sleeps. continue current mgmt. Reason for continued inpatient stay Substantial Risk for: harm to self, inability to function and rapid decompensation Time Spent With Patient Time: Total time managing care of this patient today __25__ minutes.
[2023-02-15 21:04] VITALS: BP 128/74; PULSE 75; TEMP 36.3; O2SAT 97
--- NOTE | 2023-02-16 08:36 | HO.PSYCHPN ---
Subjective Subjective Date of Service: 02/16/23 Reason For Visit: F33.3 Subjective Notes: Conditional Voluntary Healthcare Proxy: No Guardianship: No Medical Problems Affecting Mental Status: No Interim History: Patient was seen and discussed in rounds today. Records and plans were reviewed. She has been showing signs of improvement. She is eating better,, yesterday eating 50% of her lunch and 10% of her dinner. She is safe. Attending groups. Continues to have some anxiety and depression, 6 and 5 respectively. Sleeping adequately but still feels tired. Very little social interactions with others. No complaints or side effects. No changes were made today Review of Systems Review of Systems Chronic back and knee pain Nasal congestion Otherwise patient has no acute medical complaints Yes all other systems are reviewed and are negative Diagnostics Vital Signs (24Hr): Vital Signs - 24 hr 02/15/23 08:53 02/15/23 21:04 Temperature 97.1 F 97.4 F Pulse Rate 79 75 Respiratory Rate 18 Blood Pressure 119/71 128/74 Pulse Oximetry 98 97 Oxygen Delivery Method Room Air Room Air Labs 02/04/23 15:31 Medications Medications Current Medications Acetaminophen (Acetaminophen 325 Mg Tablet) 650 mg PO Q6H PRN PRN Reason: Headache/Pain Mild Scale (1-3) Last Admin: 02/12/23 20:41 Dose: 650 mg Al Hydroxide/Mg Hydroxide (Magnesium Hydrox/Alum Hydrox 30 Ml Oral.Susp) 30 ml PO Q6H PRN PRN Reason: Heartburn/Nausea Fluticasone Propionate (Fluticasone Propionate Nasal 16 Gm [place]) 1 spray NOSTRIL-B BID PRN PRN Reason: Nasal Congestion Hydroxyzine HCl (Hydroxyzine Hcl 25 Mg Tablet) 25 mg PO Q6H PRN PRN Reason: Anxiety Magnesium Hydroxide (Milk Of Magnesia 30 Ml Oral.Susp) 30 ml PO DAILY PRN PRN Reason: Constipation Nicotine Polacrilex (Nicotine Polacrilex 2 Mg Gum) 4 mg BUCCAL Q2H PRN PRN Reason: Nicotine Cravings Quetiapine Fumarate 100 mg/ (Quetiapine Fumarate 25 mg) 125 mg PO BEDTIME [facility] Last Admin: 02/15/23 21:00 Dose: 125 mg Trazodone HCl (Trazodone Hcl 50 Mg Tablet) 50 mg PO BEDTIME MRX1 PRN PRN Reason: Insomnia Venlafaxine HCl (Venlafaxine Hcl Er 75 Mg Cap.Er.24h) 75 mg PO DAILY MASSIMO Last Admin: 02/15/23 08:39 Dose: 75 mg Allergies Allergies Allergy/AdvReac Type Severity Reaction Status Date / Time No Known Allergies Allergy Verified 02/13/23 22:35 Assessment & Plan Assessment & Plan (1) Schizophrenia, paranoid, chronic with acute exacerbation: Status: Acute Code(s): F20.0 - Paranoid schizophrenia Plan 01/31: continue/restart outpt regimen of effexor and seroquel. collect collateral as able. encourage adequate PO intake and ADLs. 02/01: refused seroquel last night, took effexor this morning. encouraged to take seroquel as well. informed we would be filing for commitment. tamez warning given. 02/02 encourage seroquel; continue treatment plan 02/03 continue treatment plan 02/04 continue current tx. minimal oral intake. labs already showing s/s of dehydrating, pt declines further labs to check impact on renal function. refuses medication, mostly seroquel or other antipsychotic. 02/05: took seroquel last night for the first time since admission. presentation unchanged. delusional regarding her level of function and behaviors (such as adequacy of PO intake). 02/06: no change in presentation. refused seroquel last night. 02/07: unchanged presentation. did take seroquel last NOC. 02/08: unchanged presentation. took seroquel last night. says she is feeling a little better today. paranoid food is poisoned and that people are entering her room while she is not there. 02/09: Increase Seroquel to 150 mg HS targeting paranoia. Continue titration. 02/10: Lower Seroquel back to 125 mg HS. 02/11: unchanged in presentation. family mtg. pt signed in voluntarily. 02/12: declines increase in anti-depressant dosing. med-compliant, slept well last night. perhaps a bit more engageable than early in her stay, slightly less paranoid. continue current mgmt as pt declines recommended changes. 02/13: reporting improvement in mood and sleep. taking meds. continue current mgmt. 02/14: sleeping well, mood i'm OK. paranoia of someone watching her in her sleep and of ppl entering her room when she is not there remains. declines effexor increase again. continue current mgmt. 02/15: stable presentation. no longer concerned someone is watching her while she sleeps. continue current mgmt. 02/16: Continue current regimen and plans Reason for continued inpatient stay Substantial Risk for: med/psych decompensation Time Spent With Patient Time: Total time managing care of this patient today ____ minutes.
[2023-02-16 08:50] VITALS: BP 122/71; PULSE 81; RESP 18; TEMP 36.6; O2SAT 97
[2023-02-16] MEDS: Venlafaxine HCl ER 75 MG CAP.ER.24H PO (08:51)
[2023-02-16 21:01] VITALS: BP 114/68; PULSE 79; TEMP 36.5; O2SAT 96
[2023-02-17 08:41] VITALS: BP 141/72; PULSE 81; RESP 18; TEMP 36.7; O2SAT 99
[2023-02-17] MEDS: Venlafaxine HCl ER 75 MG CAP.ER.24H PO (08:44)
--- NOTE | 2023-02-17 09:00 | HO.PSYCHPN ---
Subjective Subjective Date of Service: 02/17/23 Reason For Visit: F33.3 Subjective Notes: Conditional Voluntary Healthcare Proxy: No Guardianship: No Medical Problems Affecting Mental Status: No Interim History: Patient was seen and discussed in rounds today. Records and plans were reviewed. She has been stable and has talked to staff about today being a difficult day because of father's Day. She is mostly in her room but feels that she has improved. She is medication compliant. She ate 50% of her dinner but no lunch yesterday. No SI. No complaints or side effects. No changes were made today Review of Systems Review of Systems Yes all other systems are reviewed and are negative Mental Status Exam Mental Status Exam Narrative: In today's visit she is alert, oriented and pleasant. Soft-spoken speech. Minimal eye contact. Affect is subdued. No signs of psychosis. No SI. Cognitively appears to be grossly intact. Judgment and Diagnostics Vital Signs (24Hr): Vital Signs - 24 hr 02/16/23 21:01 02/17/23 08:41 Temperature 97.7 F 98.0 F Pulse Rate 79 81 Respiratory Rate 18 Blood Pressure 114/68 141/72 H Pulse Oximetry 96 99 Oxygen Delivery Method Room Air Room Air Labs 02/04/23 15:31 Medications Medications Current Medications Acetaminophen (Acetaminophen 325 Mg Tablet) 650 mg PO Q6H PRN PRN Reason: Headache/Pain Mild Scale (1-3) Last Admin: 02/12/23 20:41 Dose: 650 mg Al Hydroxide/Mg Hydroxide (Magnesium Hydrox/Alum Hydrox 30 Ml Oral.Susp) 30 ml PO Q6H PRN PRN Reason: Heartburn/Nausea Fluticasone Propionate (Fluticasone Propionate Nasal 16 Gm [place]) 1 spray NOSTRIL-B BID PRN PRN Reason: Nasal Congestion Hydroxyzine HCl (Hydroxyzine Hcl 25 Mg Tablet) 25 mg PO Q6H PRN PRN Reason: Anxiety Magnesium Hydroxide (Milk Of Magnesia 30 Ml Oral.Susp) 30 ml PO DAILY PRN PRN Reason: Constipation Nicotine Polacrilex (Nicotine Polacrilex 2 Mg Gum) 4 mg BUCCAL Q2H PRN PRN Reason: Nicotine Cravings Quetiapine Fumarate 100 mg/ (Quetiapine Fumarate 25 mg) 125 mg PO BEDTIME REPLACED BY [facility] Last Admin: 02/16/23 20:59 Dose: 125 mg Trazodone HCl (Trazodone Hcl 50 Mg Tablet) 50 mg PO BEDTIME MRX1 PRN PRN Reason: Insomnia Venlafaxine HCl (Venlafaxine Hcl Er 75 Mg Cap.Er.24h) 75 mg PO DAILY MASSIMO Last Admin: 02/17/23 08:44 Dose: 75 mg Allergies Allergies Allergy/AdvReac Type Severity Reaction Status Date / Time No Known Allergies Allergy Verified 02/13/23 22:35 Assessment & Plan Assessment & Plan (1) Schizophrenia, paranoid, chronic with acute exacerbation: Status: Acute Code(s): F20.0 - Paranoid schizophrenia Plan 01/31: continue/restart outpt regimen of effexor and seroquel. collect collateral as able. encourage adequate PO intake and ADLs. 02/01: refused seroquel last night, took effexor this morning. encouraged to take seroquel as well. informed we would be filing for commitment. tamez warning given. 02/02 encourage seroquel; continue treatment plan 02/03 continue treatment plan 02/04 continue current tx. minimal oral intake. labs already showing s/s of dehydrating, pt declines further labs to check impact on renal function. refuses medication, mostly seroquel or other antipsychotic. 02/05: took seroquel last night for the first time since admission. presentation unchanged. delusional regarding her level of function and behaviors (such as adequacy of PO intake). 02/06: no change in presentation. refused seroquel last night. 02/07: unchanged presentation. did take seroquel last NOC. 02/08: unchanged presentation. took seroquel last night. says she is feeling a little better today. paranoid food is poisoned and that people are entering her room while she is not there. 02/09: Increase Seroquel to 150 mg HS targeting paranoia. Continue titration. 02/10: Lower Seroquel back to 125 mg HS. 02/11: unchanged in presentation. family mtg. pt signed in voluntarily. 02/12: declines increase in anti-depressant dosing. med-compliant, slept well last night. perhaps a bit more engageable than early in her stay, slightly less paranoid. continue current mgmt as pt declines recommended changes. 02/13: reporting improvement in mood and sleep. taking meds. continue current mgmt. 02/14: sleeping well, mood i'm OK. paranoia of someone watching her in her sleep and of ppl entering her room when she is not there remains. declines effexor increase again. continue current mgmt. 02/15: stable presentation. no longer concerned someone is watching her while she sleeps. continue current mgmt. 02/16: Continue current regimen and plans 02/17: Continue current plans and regimen Reason for continued inpatient stay Substantial Risk for: med/psych decompensation Time Spent With Patient Time: Total time managing care of this patient today ____ minutes.
[2023-02-17 20:56] VITALS: BP 103/67; PULSE 80; RESP 16; TEMP 36.3; O2SAT 98
[2023-02-18 09:11] VITALS: BP 127/72; PULSE 74; RESP 18; TEMP 36.6; O2SAT 97
[2023-02-18] MEDS: Venlafaxine HCl ER 75 MG CAP.ER.24H PO (09:56)
--- NOTE | 2023-02-18 15:09 | P.PNPSI_ITS ---
Subjective Subjective Date of Service: 02/18/23 Reason For Visit: F33.3 Interim History: calm, cooperative. similar presentation to last week. states she is grieving but is feeling a little better than yesterday. per staff, signed 3-day notice today. c/o high depression and anxiety yesterday. isolative, but spending time in the milieu. grieving. 05/12 dep/anx. no AVH. showered. says she slept OK. hearing ppl talking outside her room. Mental Status Exam Mental Status Exam Narrative: dressed in [facility]. less PMR. cooperative. speech nml in rate, nml amount, decr loudness. thoughts logical; paranoia remains. affect constricted, normo-intense, non-labile. mood today is a little better than yesterday. no SI/HI/AVH expressed. Diagnostics Vital Signs (24Hr): Vital Signs - 24 hr 02/17/23 20:56 02/18/23 09:11 Temperature 97.3 F 97.8 F Pulse Rate 80 74 Respiratory Rate 16 18 Blood Pressure 103/67 127/72 Pulse Oximetry 98 97 Oxygen Delivery Method Room Air Room Air Labs 02/04/23 15:31 Medications Medications Current Medications Acetaminophen (Acetaminophen 325 Mg Tablet) 650 mg PO Q6H PRN PRN Reason: Headache/Pain Mild Scale (1-3) Last Admin: 02/12/23 20:41 Dose: 650 mg Al Hydroxide/Mg Hydroxide (Magnesium Hydrox/Alum Hydrox 30 Ml Oral.Susp) 30 ml PO Q6H PRN PRN Reason: Heartburn/Nausea Fluticasone Propionate (Fluticasone Propionate Nasal 16 Gm [place]) 1 spray NOSTRIL-B BID PRN PRN Reason: Nasal Congestion Hydroxyzine HCl (Hydroxyzine Hcl 25 Mg Tablet) 25 mg PO Q6H PRN PRN Reason: Anxiety Magnesium Hydroxide (Milk Of Magnesia 30 Ml Oral.Susp) 30 ml PO DAILY PRN PRN Reason: Constipation Nicotine Polacrilex (Nicotine Polacrilex 2 Mg Gum) 4 mg BUCCAL Q2H PRN PRN Reason: Nicotine Cravings Quetiapine Fumarate 100 mg/ (Quetiapine Fumarate 25 mg) 125 mg PO BEDTIME MASSIMO Last Admin: 02/17/23 20:54 Dose: 125 mg Trazodone HCl (Trazodone Hcl 50 Mg Tablet) 50 mg PO BEDTIME MRX1 PRN PRN Reason: Insomnia Venlafaxine HCl (Venlafaxine Hcl Er 75 Mg Cap.Er.24h) 75 mg PO DAILY MASSIMO Last Admin: 02/18/23 09:56 Dose: 75 mg Allergies Allergies Allergy/AdvReac Type Severity Reaction Status Date / Time No Known Allergies Allergy Verified 02/13/23 22:35 Assessment & Plan Assessment & Plan (1) Schizophrenia, paranoid, chronic with acute exacerbation: Status: Acute Code(s): F20.0 - Paranoid schizophrenia Plan 01/31: continue/restart outpt regimen of effexor and seroquel. collect collateral as able. encourage adequate PO intake and ADLs. 02/01: refused seroquel last night, took effexor this morning. encouraged to take seroquel as well. informed we would be filing for commitment. tamez warning given. 02/02 encourage seroquel; continue treatment plan 02/03 continue treatment plan 02/04 continue current tx. minimal oral intake. labs already showing s/s of dehydrating, pt declines further labs to check impact on renal function. refuses medication, mostly seroquel or other antipsychotic. 02/05: took seroquel last night for the first time since admission. presentation unchanged. delusional regarding her level of function and behaviors (such as adequacy of PO intake). 02/06: no change in presentation. refused seroquel last night. 02/07: unchanged presentation. did take seroquel last NOC. 02/08: unchanged presentation. took seroquel last night. says she is feeling a little better today. paranoid food is poisoned and that people are entering her room while she is not there. 02/09: Increase Seroquel to 150 mg HS targeting paranoia. Continue titration. 02/10: Lower Seroquel back to 125 mg HS. 02/11: unchanged in presentation. family mtg. pt signed in voluntarily. 02/12: declines increase in anti-depressant dosing. med-compliant, slept well last night. perhaps a bit more engageable than early in her stay, slightly less paranoid. continue current mgmt as pt declines recommended changes. 02/13: reporting improvement in mood and sleep. taking meds. continue current mgmt. 02/14: sleeping well, mood i'm OK. paranoia of someone watching her in her sleep and of ppl entering her room when she is not there remains. declines effexor increase again. continue current mgmt. 02/15: stable presentation. no longer concerned someone is watching her while she sleeps. continue current mgmt. 02/16: Continue current regimen and plans 02/17: Continue current plans and regimen 02/18: similar presentation to last week. taking meds, but declining to increase dosing. 3-day notice submitted. Reason for continued inpatient stay Substantial Risk for: inability to function and rapid decompensation Time Spent With Patient Time: Total time managing care of this patient today __25__ minutes.
[2023-02-18 18:31] VITALS: BP 127/76; PULSE 82; RESP 18; TEMP 36.8; O2SAT 97
[2023-02-19 08:32] VITALS: BP 116/75; PULSE 71; RESP 18; TEMP 36.2; O2SAT 99
[2023-02-19] MEDS: Venlafaxine HCl ER 75 MG CAP.ER.24H PO (09:03)
--- NOTE | 2023-02-19 15:18 | P.PNPSI_ITS ---
Subjective Subjective Date of Service: 02/19/23 Reason For Visit: F33.3 Interim History: no change in presentation. continues to be looser and more spontaneous. still feeling depressed and tired from meds. per staff, 3-day up . calm. no change. isolative but visible. med-compliant. 02/09 dep/anx. no AVH. depressed but not gonna kill myself. per OT, spoke in group yesterday for the first time. Mental Status Exam Mental Status Exam Narrative: dressed in [facility]. less PMR. cooperative. speech nml in rate, nml amount, decr loudness. thoughts logical; paranoia remains. affect constricted, normo-intense, non-labile. mood today is a little better than yesterday. no SI/HI/AVH expressed. Diagnostics Vital Signs (24Hr): Vital Signs - 24 hr 02/18/23 18:31 02/19/23 08:32 Temperature 98.2 F 97.1 F Pulse Rate 82 71 Respiratory Rate 18 18 Blood Pressure 127/76 116/75 Pulse Oximetry 97 99 Oxygen Delivery Method Room Air Room Air Labs 02/04/23 15:31 Medications Medications Current Medications Acetaminophen (Acetaminophen 325 Mg Tablet) 650 mg PO Q6H PRN PRN Reason: Headache/Pain Mild Scale (1-3) Last Admin: 02/12/23 20:41 Dose: 650 mg Al Hydroxide/Mg Hydroxide (Magnesium Hydrox/Alum Hydrox 30 Ml Oral.Susp) 30 ml PO Q6H PRN PRN Reason: Heartburn/Nausea Fluticasone Propionate (Fluticasone Propionate Nasal 16 Gm [place]) 1 spray NOSTRIL-B BID PRN PRN Reason: Nasal Congestion Hydroxyzine HCl (Hydroxyzine Hcl 25 Mg Tablet) 25 mg PO Q6H PRN PRN Reason: Anxiety Magnesium Hydroxide (Milk Of Magnesia 30 Ml Oral.Susp) 30 ml PO DAILY PRN PRN Reason: Constipation Nicotine Polacrilex (Nicotine Polacrilex 2 Mg Gum) 4 mg BUCCAL Q2H PRN PRN Reason: Nicotine Cravings Quetiapine Fumarate 100 mg/ (Quetiapine Fumarate 25 mg) 125 mg PO BEDTIME MASSIMO Last Admin: 02/18/23 21:24 Dose: 125 mg Trazodone HCl (Trazodone Hcl 50 Mg Tablet) 50 mg PO BEDTIME MRX1 PRN PRN Reason: Insomnia Venlafaxine HCl (Venlafaxine Hcl Er 75 Mg Cap.Er.24h) 75 mg PO DAILY MASSIMO Last Admin: 02/19/23 09:03 Dose: 75 mg Allergies Allergies Allergy/AdvReac Type Severity Reaction Status Date / Time No Known Allergies Allergy Verified 02/13/23 22:35 Assessment & Plan Assessment & Plan (1) Schizophrenia, paranoid, chronic with acute exacerbation: Status: Acute Code(s): F20.0 - Paranoid schizophrenia Plan 01/31: continue/restart outpt regimen of effexor and seroquel. collect collateral as able. encourage adequate PO intake and ADLs. 02/01: refused seroquel last night, took effexor this morning. encouraged to take seroquel as well. informed we would be filing for commitment. tamez warning given. 02/02 encourage seroquel; continue treatment plan 02/03 continue treatment plan 02/04 continue current tx. minimal oral intake. labs already showing s/s of dehyd rating, pt declines further labs to check impact on renal function. refuses medication, mostly seroquel or other antipsychotic. 02/05: took seroquel last night for the first time since admission. presentation unchanged. delusional regarding her level of function and behaviors (such as adequacy of PO intake). 02/06: no change in presentation. refused seroquel last night. 02/07: unchanged presentation. did take seroquel last NOC. 02/08: unchanged presentation. took seroquel last night. says she is feeling a little better today. paranoid food is poisoned and that people are entering her room while she is not there. 02/09: Increase Seroquel to 150 mg HS targeting paranoia. Continue titration. 02/10: Lower Seroquel back to 125 mg HS. 02/11: unchanged in presentation. family mtg. pt signed in voluntarily. 02/12: declines increase in anti-depressant dosing. med-compliant, slept well last night. perhaps a bit more engageable than early in her stay, slightly less paranoid. continue current mgmt as pt declines recommended changes. 02/13: reporting improvement in mood and sleep. taking meds. continue current mgmt. 02/14: sleeping well, mood i'm OK. paranoia of someone watching her in her sleep and of ppl entering her room when she is not there remains. declines effexor increase again. continue current mgmt. 02/15: stable presentation. no longer concerned someone is watching her while she sleeps. continue current mgmt. 02/16: Continue current regimen and plans 02/17: Continue current plans and regimen 02/18: similar presentation to last week. taking meds, but declining to increase dosing. 3-day notice submitted. 02/19: 3-day notice expires in 2 days. spoke in group for the first time yesterday. otherwise no change in presentation. gradual improvements, still d epressed, no SI. Reason for continued inpatient stay Substantial Risk for: inability to function and rapid decompensation Time Spent With Patient Time: Total time managing care of this patient today _25___ minutes.
[2023-02-19 20:54] VITALS: BP 121/78; PULSE 82; TEMP 36.6; O2SAT 96
[2023-02-20 08:21] VITALS: BP 111/70; PULSE 84; RESP 16; TEMP 36.6; O2SAT 98
[2023-02-20] MEDS: Venlafaxine HCl ER 75 MG CAP.ER.24H PO (09:05)
--- NOTE | 2023-02-20 11:49 | PM.PSYDC ---
DS: Providers Provider Date of Service: 02/20/23 Date of admission: 01/30/23 18:49 Primary care physician: Unknown Physician Consults: 01/30/23 19:13 Consult to Hospitalist Routine Comment: Consulting Provider: Hospitalist Reason For Exam: OSH admission DS: Diagnosis Discharge Diagnosis (1) Schizophrenia, paranoid, chronic with acute exacerbation: Status: Acute DS: Medications Discharge Medications Home Medications: Previous Rx's Medication Instructions Recorded quetiapine 100 mg tablet 100 mg PO BEDTIME 30 days #30 tabs 02/20/23 quetiapine 25 mg tablet 25 mg PO BEDTIME 30 days #30 tabs 02/20/23 venlafaxine 75 mg capsule,extended 75 mg PO DAILY 30 days #30 caps 02/20/23 release 24 hr Mental Status Exam Mental Status Exam Narrative: [facility] in [facility]. less PMR. cooperative. speech nml in rate, nml amount, decr loudness. thoughts logical. affect constricted, normo-intense, non-labile. mood a little depressed, a little anxiety,. no SI/HI/AVH. DS: Summary Hospital Course Hospital Course: per 01/31 admission note: per crisis eval, pt was BIB family to ED with c/o steadily decreasing ability to care for herself.? she had stopped taking her medications.? as they were driving her to [facility] ED she attempted to jump from the moving vehicle because she did not want to go there.? she reported to crisis staff that she was taking all meds as prescribed aside from seroquel, citing B/L hand tremors from it.? she denies any AVH, pt's family report delusions of water running in the house.? family reported pt has had poor PO intake recently, has not been attending to ADLs, and has been irritable.? pt denies substance use or medical problems. on psych unit, pt was noted to have spent hours standing in place and staring at the wall.? pt had multiple family visitors and was noted to be interacting with them.? on attempted MD interview, pt scoffed at MD several times as MD invited pt to have a conversation.? she stood still and looked at MD incredulously.? MD then excused himself from her vicinity, as it appeared she was unable to interact. 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 reported h/o psych hosps SA: SIB: no current mental health providers h/o PHP programs. h/o substantial weight loss when depressed. h/o risperidone with good effect, and remeron & effexor. Medical Evaluation Reviewed: Hospitalist Almaz Pending [facility] Family History: none reported Social History: lives in multi-family home with son and [id number].? safe, she may return. Substance History: tox screen negative per crisis eval, has h/o alcohol abuse Trauma History: none reported Precis: 01/31:? continue/restart outpt regimen of effexor and seroquel.? collect collateral as able.? encourage adequate PO intake and ADLs. 02/01:? refused seroquel last night, took effexor this morning.? encouraged to take seroquel as well.? informed we would be filing for commitment.? tamez warning given. 02/02 encourage seroquel; continue treatment plan 02/03 continue treatment plan 02/04 continue current tx. minimal oral intake. labs already showing s/s of dehydrating, pt declines further labs to check impact on renal function. refuses medication, mostly seroquel or other antipsychotic. 02/05:? took seroquel last night for the first time since admission.? presentation unchanged.? delusional regarding her level of function and behaviors (such as adequacy of PO intake). 02/06:? no change in presentation.? refused seroquel last night. 02/07:? unchanged presentation.? did take seroquel last NOC. 02/08:? unchanged presentation.? took seroquel last night.? says she is feeling a little better today. ? paranoid food is poisoned and that people are entering her room while she is not there. 02/09: Increase Seroquel to 150 mg HS targeting paranoia. Continue titration. 02/10: Lower Seroquel back to 125 mg HS. 02/11:? unchanged in presentation.? family mtg.? pt signed in voluntarily. 02/12:? declines increase in anti-depressant dosing.? med-compliant, slept well last night.? perhaps a bit more engageable than early in her stay, slightly less paranoid.? continue current mgmt as pt declines recommended changes. 02/13:? reporting improvement in mood and sleep.? taking meds.? continue current mgmt. 02/14:? sleeping well, mood i'm OK. ? paranoia of someone watching her in her sleep and of ppl entering her room when she is not there remains.? declines effexor increase again.? continue current mgmt. 02/15:? stable presentation.? no longer concerned someone is watching her while she sleeps.? continue current mgmt. 02/16: Continue current regimen and plans 02/17: Continue current plans and regimen 02/18:? similar presentation to last week.? taking meds, but declining to increase dosing.? 3-day notice submitted. 02/19:? 3-day notice expires in 2 days.? spoke in group for the first time yesterday.? otherwise no change in presentation.? gradual improvements, still depressed, no SI. 02/20: stable presentation, no change to management. 02/21: discharged upon expiry of 3-day notice, not committable at present. Time Spent with Patient Time attestation: Total time managing care of this patient today ____ minutes. 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 ) [facility] [Other] - 03/25/23 1:00 pm (Anayeli Porter(Provider) -Psychiatric Assessment) [facility] [Other] - 04/25/23 12:00 pm (Medication Management- Anayeli Porter) Physician,Unknown J [Primary Care Provider] - 03/06/23 10:30 am ([facility] phone [phone] confirmed for March 06 at 10:30am) Discharge Medications: Continued quetiapine 25 mg tablet 25 mg PO BEDTIME 30 Days Qty: 30 0RF venlafaxine 75 mg capsule,extended release 24hr 75 mg PO DAILY 30 Days Qty: 30 0RF quetiapine 100 mg tablet 100 mg PO BEDTIME 30 Days Qty: 30 0RF Discharge Orders: Discharge Order (Routine); Ordered 02/21/23 Ordered By: Earnest Gonzalez Diet: Advance to usual diet Activity on Discharge: As tolerated Stand Alone Forms: Patient Portal Discharge page, Community Support Care Plan Goals: improved mood and function in outpatient setting Health Concerns: none Plan of Treatment: take medications as prescribed, attend appointments as scheduled Assessment: not at imminent risk of harm to self or others Discharge Date/Time: 02/21/23 11:40
[2023-02-20 18:00] VITALS: BP 138/74; PULSE 82; RESP 18; TEMP 36.6; O2SAT 98
[2023-02-21 08:15] VITALS: BP 126/79; PULSE 84; RESP 18; TEMP 36.6; O2SAT 96
[2023-02-21] MEDS: Venlafaxine HCl ER 75 MG CAP.ER.24H PO (08:32)
--- NOTE | 2023-02-21 11:51 | PC.NURSE ---
Pt is ready and aware of pending discharge. She denies SI/HI/AH/VH this time. Discharge instructions, to include medications and appointments reviewed , Pt verbalized understanding. Pt did not have any belongings in our storage room.,
== END 2023-02-21 11:40 | disposition home or self-care (01) | DRG 750 ==
PROVIDERS: Social Worker; Admitting Provider Psychiatry & Neurology Psychiatry; Visit Provider Psychiatry & Neurology Psychiatry
DX: F20.0 Paranoid schizophrenia (principal); Z91.148 Patient's other noncompliance with medication regimen for other reason; G89.21 Chronic pain due to trauma; Z79.899 Other long term (current) drug therapy
CPT/HCPCS: 36415; 80053; 80061; 82607; 82746; 83036; 84439; 84443